=== PATIENT | female | born 1980 | race American Indian/Alaskan Native ===

== ENCOUNTER 2023-10-13 18:39 | Emergency (ER) | payer OTHER, SELFPAY ==
[2023-10-13 18:40] VITALS: BP 189/108
[2023-10-13 19:21] VITALS: BP 157/94
[2023-10-13 20:00] VITALS: BP 154/83
--- NOTE | 2023-10-13 20:36 | ED.GENMED ---
History of Present Illness
General
Chief Complaint: Breathing Problem
Time Seen by Provider: 10/13/23 19:13
Travel History
Have you had any contact with someone who has COVID-19?: No
Do you have any symptoms of coronavirus? Fever > 100 degrees, chills, cough, shortness of breath, sore throat, loss of taste or smell, muscle aches, or headache?: No
History of Present Illness
History of Present Illness:
43-year-old female with history of hypothyroidism presents to the emergency department for evaluation of a intractable cough with occasional wheezing and chest pressure for the past 8 weeks. The cough is productive of green and yellow mucus. She
was treated last week with a course of corticosteroids that she feels did not provide much relief. Has no history of underlying lung disease and denies any tobacco use. No ill contacts at home.
Review of Systems
Review of Systems
Allergies reviewed?: Yes
All Other Systems: ROS reviewed and negative except as documented in HPI and ROS
Phy Exam
Physical Exam
Physical Exam:
GEN: Well appearing, NAD, WDWN
HEENT: Oral mucosa moist, no scleral icterus
Cardiac: Regular rate and rhythm, no murmurs
Lung: No respiratory distress, no tachypnea, lungs clear to auscultation bilaterally
MSK: No gross deformity or injuries
Skin: Good color, no pallor or jaundice, no rashes
Neuro: AO x3, moves all extremities freely
Psych: Calm, cooperative
Course
Orders/Labs/Results
Orders:
Orders
10/13/23 18:44
Electrocardiogram (*1) Urgent
Reason for Study: Shortness of Breath
EKG- Treatment ONCE
10/13/23 19:20
CR Chest - 2 Views Urgent
Comment:
Reason For Exam: cough
Vital Signs
Initial and Last Documented VS:
Initial Vital Signs
Temp Pulse Resp BP Pulse Ox
97.6 F 72 18 189/108 97
10/13/23 18:40 10/13/23 18:40 10/13/23 18:40 10/13/23 18:40 10/13/23 18:40
Last Documented Vital Signs
Temp Pulse Resp BP Pulse Ox
97.6 F 79 18 155/97 97
10/13/23 18:40 10/13/23 20:50 10/13/23 20:50 10/13/23 20:50 10/13/23 20:50
MDM/Problems Addressed
MDM/Problems Addressed:
The patient's chest x-ray shows no evidence for infiltrate, the duration of her symptoms will suggest a potential trial need for doxycycline for atypical pneumonia. Do not suspect pulmonary embolism, no wheezing thus do not suspect reactive airway
disease or asthma
Comment
Comment:
Initial EKG independently interpreted by me shows normal sinus rhythm at a rate of [address] changes concerning for ischemia, chest x-ray independently interpreted.
*Critical Care Note
Total Time (30-74mins, 75-104mins- exclusive of procedures): Not Applicable
ED Attending Note
-
Portions of this chart may have been created with voice recognition software.� Occasional wrong word or��sound alike� substitutions may have occurred due to the inherent limitations of voice recognition software.
Discharge Plan
Departure
Patient Disposition: Home (Routine Discharge)
Date of Disposition: 10/13/23
Time of Disposition: 20:36
Patient with high blood pressure during this ER visit?: No
Discharge Problem:
Bronchitis
Instructions: Acute Bronchitis, Adult (DC)
Prescriptions:
New
doxycycline monohydrate 100 mg capsule
100 mg PO BID 5 Days Qty: 10 0RF
Referrals:
Renata De La Fuente CRNP [Family Provider] -
Interventions
Interventions:
*Risk Screen - Suicide Last Done: 10/13/23 18:40
*General Assessment Last Done: 10/13/23 18:40
*Neglect/Abuse Screening Last Done: 10/13/23 18:40
ED- Fall Risk Assessment Last Done: 10/13/23 19:15
*ED COVID-19 Vaccine History Last Done: 10/13/23 19:15
*Nursing Disposition Last Done: 10/13/23 20:50
ED- Cardiac Assessment Last Done: 10/13/23 19:15
ED- Pulmonary Assessment Last Done: 10/13/23 19:15
Discharge Date and Time
Discharge Date/Time: 10/13/23 20:50
Print Language: UKRAINIAN
[2023-10-13 20:50] VITALS: BP 155/97
== END 2023-10-13 20:50 | disposition home or self-care (01) ==
LOC: EMR 18:39
PROVIDERS: EMERGENCY PHYSICIAN Emergency Medicine; FAMILY PHYSICIAN Nurse Practitioner
DX: J40 Bronchitis, not specified as acute or chronic (principal)
CPT/HCPCS: 99284; 71046; 93005